=== PATIENT | male | born 1970 ===

== ENCOUNTER 2018-02-09 03:25 | Inpatient (IN) | payer OTHER ==
[2018-02-09 03:44] VITALS: BMI 25.7
[2018-02-09] MEDS ORDERED: Sodium Chloride 0.9% 1,000 ML IV STA (03:44)
--- NOTE | 2018-02-09 03:54 | ED PDOC ---
Arrival/HPI - General Chief Complaint: Abdominal Pain Time Seen by Provider: 02/09/18 03:32 Historian: Patient - History of Present Illness Narrative History of Present Illness (Text): 02/09/18 03:49 47 year old male, with no significant past medical history, presents to the emergency department complaining of abrupt onset of left-sided flank pain and abdominal pain that began ~ 2 hours prior to arrival. Patient denies any fever, chills, chest pain, shortness of breath, nausea, vomiting, diarrhea, other urinary symptoms, neck pain, headache, dizziness, or any other complaints. Time/Duration: Prior to Arrival (2 hours) Symptom Onset: Sudden Symptom Course: Unchanged Activities at Onset: Light Context: Home Past Medical History - Provider Review Nursing Documentation Reviewed: Yes Family/Social History - Physician Review Nursing Documentation Reviewed: Yes Family/Social History: No Known Family HX Allergies/Home Meds Allergies/Adverse Reactions: Allergies Unobtainable Allergy (Verified 02/09/18 05:17) Patient unaware of name of medication that gives him hives. patient states he was taking it for pain and inflammation. Home Medications: Home Meds Medication Instructions Recorded Confirmed No Known Home Med 02/09/18 02/09/18 Review of Systems - Physician Review All systems were reviewed & negative as marked: Yes - Review of Systems Constitutional: absent: Fevers, Other (chills) Respiratory: absent: SOB Cardiovascular: absent: Chest Pain Gastrointestinal: Abdominal Pain. absent: Diarrhea, Nausea, Vomiting Genitourinary Male: Other (urinary urgency). absent: Dysuria, Frequency, Hematuria Musculoskeletal: Back Pain (left-sided flank pain). absent: Neck Pain Neurological: absent: Headache, Dizziness Physical Exam Vital Signs Reviewed: Yes Vital Signs Temp Pulse Resp BP Pulse Ox 02/09/18 05:26 98.7 F 68 18 124/74 98 02/09/18 03:43 63 18 161/88 H 98 Temperature: Afebrile Blood Pressure: Hypertensive Pulse: Regular Respiratory Rate: Normal Appearance: Positive for: Well-Appearing, Non-Toxic, Comfortable Pain Distress: None Mental Status: Positive for: Alert and Oriented X 3 - Systems Exam Head: Present: Atraumatic, Normocephalic Pupils: Present: PERRL Extroacular Muscles: Present: EOMI Conjunctiva: Present: Normal Mouth: Present: Moist Mucous Membranes Neck: Present: Normal Range of Motion Respiratory/Chest: Present: Clear to Auscultation, Good Air Exchange. No: Respiratory Distress, Accessory Muscle Use Cardiovascular: Present: Regular Rate and Rhythm, Normal S1, S2. No: Murmurs Abdomen: Present: Tenderness (left lower abdomen), Normal Bowel Sounds. No: Distention (left upper/lower abdomen), Peritoneal Signs Back: Present: Normal Inspection Upper Extremity: Present: Normal Inspection. No: Cyanosis, Edema Lower Extremity: Present: Normal Inspection. No: Edema Neurological: Present: GCS=15, CN II-XII Intact, Speech Normal Skin: Present: Warm, Dry, Normal Color. No: Rashes Psychiatric: Present: Alert, Oriented x 3, Normal Insight, Normal Concentration Medical Decision Making ED Course and Treatment: 02/09/18 03:49 Impression: 47 year old male presents complaining of abrupt onset of left-sided flank pain and abdominal pain associated with urinary urgency that began 2 hours prior to arrival. Plan: -- EKG -- labs -- IV Fluids, Toradol, Zofran Inj, Morphine, -- Urinalysis -- CT Abd & pelvis IV Contrast -- Reassess and disposition Progress Notes: EKG shows NSR at 61 BPM with no acute changes. Interpreted by me. 02/09/18 04:35 Notified by nurse that patient became hypotensive following Morphine administration. Fluids given and Narcan was ordered. 02/09/18 06:00 Patient reexamined now with some tenderness on palpation to right lower abdomen as well as left sided abdomen.CT scan results suspicious for appendicitis. 02/09/18 06:18 Case discussed with surgical endoscopist Dr. Teresa who is aware and agrees to come down and evaluate patient. 02/09/18 06:45 Case was discussed with surgeon .He accepted to his service - Lab Interpretations Lab Results: 02/09/18 04:07 02/09/18 04:07 Lab Results 02/09/18 04:20: Urine Color Yellow, Urine Appearance Clear, Urine pH 6.0, Ur Specific Peak 1.025, Urine Protein Negative, Urine Glucose (UA) Negative, Urine Ketones Negative, Urine Blood Negative, Urine Nitrate Negative, Urine Bilirubin Negative, Urine Urobilinogen 0.2, Ur Leukocyte Esterase Negative 02/09/18 04:07: WBC 9.7, RBC 4.77, Hgb 14.6, Hct 40.8 L, MCV 85.5, MCH 30.6, MCHC 35.8, RDW 12.6, Plt Count 334, MPV 9.9 02/09/18 04:07: Sodium 140, Potassium 3.8, Chloride 106, Carbon Dioxide 25, Anion Gap 13, BUN 14, Creatinine 0.9, Est GFR ( Amer) > 60, Est GFR (Non- Af Amer) > 60, Random Glucose 113 H, Calcium 9.1, Total Bilirubin 0.5, AST 34, ALT 36, Alkaline Phosphatase 88, Total Protein 7.8, Albumin 4.1, Globulin 3.7, Albumin/Globulin Ratio 1.1, Lipase 145 I have reviewed the lab results: Yes - RAD Interpretation Narrative RAD Interpretations (Text): 02/09/18 06:15 CT Abd/Pelvis IMPRESSION: 1. Dilated, predominantly fluid-filled appendix. Although there is a small amount of intra-appendiceal air and there is no discernible periappendiceal free fluid or fat stranding, both the degree of dilatation and the amount of intra-appendiceal fluid are considered highly suspicious for acute appendicitis. Correlation with clinical assessment is recommended, as well as confirmation of the symptomatic abdominal quadrant. 2. Descending colon and sigmoid diverticulosis, without evidence of acute inflammatory changes to suggest acute diverticulitis. 3. Small fat-containing left inguinal hernia. 4. A 5 mm hyperattenuating focus is identified within the left aspect of the pelvis. Although within the vicinity of the left ureter, there is no evidence of left obstructive uropathy. This focus appears most consistent with a pelvic phlebolith Radiology Orders: 02/09/18 04:50 ABD & PELVIS IV CONTRAST ONLY [CT] Stat Hand Sample Maker: Radiologist - EKG Interpretation Interpreted by ED Physician: Yes Type: 12 lead EKG - Medication Orders Current Medication Orders: Discontinued Medications Sodium Chloride (Sodium Chloride 0.9%) 1,000 mls @ 999 mls/hr IV .Q1H1M STA Stop: 02/09/18 04:44 Last Admin: 02/09/18 04:14 Dose: 999 mls/hr eMAR Start Stop Document 02/09/18 04:14 SS (Rec: 02/09/18 04:14 SS [id number]) Intravenous Solution Start Date 02/09/18 Start Time 04:14 End Date 02/09/18 End time 05:15 Total Infusion Time 61 Morphine Sulfate (Morphine) 2 mg IVP STAT STA Stop: 02/09/18 04:01 Last Admin: 02/09/18 04:13 Dose: 2 mg MAR Pain Assessment Document 02/09/18 04:13 SS (Rec: 02/09/18 04:14 SS [id number]) Pain Reassessment Is this a pain reassessment? No Sleep Is patient sleeping during reassessment? No Presence of Pain Presence of Pain Yes Pain Scale Used Pain Scale Used Numeric Location Left, Right or Bilateral Left Upper or Lower Lower Pain Location Body Site Abdomen IVP Administration Document 02/09/18 04:13 SS (Rec: 02/09/18 04:14 SS [id number]) Charges for Administration # of IVP Administrations 1 Morphine Sulfate (Morphine) 2 mg IVP STAT STA Stop: 02/09/18 04:32 Last Admin: 02/09/18 04:29 Dose: 2 mg MAR Pain Assessment Document 02/09/18 04:29 SS (Rec: 02/09/18 04:39 SS [id number]) Pain Reassessment Is this a pain reassessment? No Presence of Pain Presence of Pain Yes IVP Administration Document 02/09/18 04:29 SS (Rec: 02/09/18 04:39 SS [id number]) Charges for Administration # of IVP Administrations 1 Naloxone HCl (Narcan) 0.4 mg IVP STAT STA Stop: 02/09/18 04:39 Last Admin: 02/09/18 04:47 Dose: 0.4 mg IVP Administration Document 02/09/18 04:47 SS (Rec: 02/09/18 04:47 SS [id number]) Charges for Administration # of IVP Administrations 1 Ondansetron HCl (Zofran Inj) 4 mg IVP ONCE ONE Stop: 02/09/18 04:01 Last Admin: 02/09/18 04:13 Dose: 4 mg IVP Administration Document 02/09/18 04:13 SS (Rec: 02/09/18 04:13 SS [id number]) Charges for Administration # of IVP Administrations 1 - Scribe Statement The provider has reviewed the documentation as recorded by the Trish Florez Provider Scribe Attestation: All medical record entries made by the Scribe were at my direction and personally dictated by me. I have reviewed the chart and agree that the record accurately reflects my personal performance of the history, physical exam, medical decision making, and the department course for this patient. I have also personally directed, reviewed, and agree with the discharge instructions and disposition. Disposition/Present on Arrival - Present on Arrival Any Indicators Present on Arrival: No History of DVT/PE: No History of Uncontrolled Diabetes: No Urinary Catheter: No History of Decub. Ulcer: No History Surgical Site Infection Following: None - Disposition Have Diagnosis and Disposition been Completed?: Yes Diagnosis: Abdominal pain, Appendicitis Disposition: HOSPITALIZED Disposition Time: 06:36 Patient Problems: Current Active Problems Problem Status Onset Abdominal pain Acute Appendicitis Acute Condition: STABLE
[2018-02-09] MEDS ORDERED: Morphine 2 mg/ml ISec IVP STA ×3 (04:00→08:50)
[2018-02-09 04:32] LABS: ALB/GLOB RATIO 1.1 (1.1-1.8); ALBUMIN 4.1 g/dL (3.0-4.8); ALT/SGPT 36 U/L (7-56); AST/SGOT 34 U/L (17-59); BLOOD UREA NITROGEN 14 mg/dL (7-21); CALCIUM 9.1 mg/dL (8.4-10.5); GFR NON-AFRICAN AMERICAN > 60; LIPASE 145 U/L (23-300)
[2018-02-09] MEDS ORDERED: Naloxone 0.4 mg/ml Inj (Adult) IVP STA (04:38)
[2018-02-09] MEDS ORDERED: Naloxone 0.4 mg/ml Inj (Adult) ONE (04:41)
[2018-02-09 04:50] LABS: HEMOGLOBIN 14.6 g/dL (14.0-18.0); MEAN CELL VOLUME 85.5 fl (80.0-105.0); MEAN CORPUSCULAR HEMOGLOBIN 30.6 pg (25.0-35.0); MEAN CORPUSCULAR HGB CONC 35.8 g/dl (31.0-37.0); MEAN PLATELET VOLUME 9.9 fl (7.0-11.0); RBC 4.77 10^6/uL (3.5-6.1); RED CELL DISTRIBUTION WIDTH 12.6 % (11.5-14.5); WHITE BLOOD COUNT 9.7 10^3/ul (4.5-11.0)
[2018-02-09 04:51] LABS: URINE BILIRUBIN NEGATIVE (NEGATIVE); URINE BLOOD NEGATIVE (NEGATIVE); URINE GLUCOSE (UA) NEGATIVE (NEGATIVE); URINE LEUKOCYTE ESTERASE NEGATIVE Leu/uL (NEGATIVE); URINE PROTEIN NEGATIVE mg/dL (<30 mg/dL); URINE UROBILINOGEN 0.2 E.U./dL (<1 E.U./dL)
[2018-02-09 04:52] LABS: URINE APPEARANCE CLEAR (CLEAR); URINE COLOR YELLOW (YELLOW)
[2018-02-09] MEDS ORDERED: Iohexol 350 MG/100 ML VIAL ONE (04:56)
--- NOTE | 2018-02-09 06:38 | CT ---
EXAM: CT Abdomen and Pelvis With Intravenous Contrast CLINICAL HISTORY: 47 years old, male; Pain; Abdominal pain; Localized; Left upper quadrant (luq) TECHNIQUE: Axial computed tomography images of the abdomen and pelvis with intravenous contrast. All CT scans at this facility use at least one of these dose optimization techniques: automated exposure control; mA and/or kV adjustment per patient size (includes targeted exams where dose is matched to clinical indication); or iterative reconstruction. Coronal and sagittal reformatted images were created and reviewed. CONTRAST: 100 mL of omnipaque 350 administered intravenously. COMPARISON: No relevant prior studies available. FINDINGS: Lung bases: Mild dependent changes are demonstrated within the bilateral lower lobes. ABDOMEN: Liver: Unremarkable. No mass. Gallbladder and bile ducts: Unremarkable. No calcified stones. No ductal dilation. Pancreas: Unremarkable. No mass. No ductal dilation. Spleen: Unremarkable. No splenomegaly. Adrenals: Unremarkable. No mass. Kidneys and ureters: A 5 mm hyperattenuating focus is identified within the left aspect of the pelvis. Although within the vicinity of the left ureter, there is no evidence of left obstructive uropathy Stomach and bowel: There is descending colon and sigmoid diverticulosis, without evidence of acute inflammatory changes. No obstruction. PELVIS: Appendix: The appendix is diffusely dilated and predominantly fluid-filled, measuring up to 13 mm in outer-wall to outer-wall diameter. The fluid-distended column The distal tip of the appendix remains air distended and thin-walled. There is no discernible her appendiceal free fluid or fat stranding. Small foci of mineralization demonstrated within the appendix could represent minute appendicoliths. Bladder: Unremarkable. No mass. Reproductive: Unremarkable as visualized. ABDOMEN and PELVIS: Intraperitoneal space: See above. Bones/joints: No acute fracture. No dislocation. Soft tissues: There is a small fat-containing left inguinal hernia. Vasculature: Unremarkable. No abdominal aortic aneurysm. Lymph nodes: No pathologically enlarged lymph nodes. IMPRESSION: 1. Dilated, predominantly fluid-filled appendix. Although there is a small amount of intra-appendiceal air and there is no discernible periappendiceal free fluid or fat stranding, both the degree of dilatation and the amount of intra-appendiceal fluid are considered highly suspicious for acute appendicitis. Correlation with clinical assessment is recommended, as well as confirmation of the symptomatic abdominal quadrant. 2. Descending colon and sigmoid diverticulosis, without evidence of acute inflammatory changes to suggest acute diverticulitis. 3. Small fat-containing left inguinal hernia. 4. A 5 mm hyperattenuating focus is identified within the left aspect of the pelvis. Although within the vicinity of the left ureter, there is no evidence of left obstructive uropathy. This focus appears most consistent with a pelvic phlebolith. THIS REPORT CONTAINS FINDINGS THAT MAY BE CRITICAL TO PATIENT CARE. The findings were verbally communicated via telephone conference with Amol Rodriguez at 6:06 AM EDT on 02/09/2018. The findings were acknowledged and understood.
[2018-02-09] MEDS ORDERED: HYDROmorphone 0.5 mg/0.5 ml ISec IVP PRN (09:30)
[2018-02-09] MEDS ORDERED: Sodium Chloride 0.9% 1,000 ML IV SCH (09:30)
--- NOTE | 2018-02-09 09:43 | CARD ---
APPROVED REPORT Date of service: 02/09/2018 EKG Measurement Heart [id number] <Conclusion> Normal sinus rhythm Normal ECG
[2018-02-09] MEDS: Piperacillin/Tazobact 3.375 gm 100 ML IVPB SCH ×2 (12:09→17:38)
[2018-02-09] MEDS ORDERED: HYDROmorphone 0.5 mg/0.5 ml ISec IVP STA (12:26)
[2018-02-09] MEDS ORDERED: HYDROmorphone 1 mg/ml ISec IVP PRN (12:45)
--- NOTE | 2018-02-09 13:23 | CP.PCM.CON ---
History of Present Illness - History of Present Illness History of Present Illness: General Surgery Consult note For Dr. Carpio This 47M with no PMH presents with acute onset abdominal pain that began at 3am. It is diffuse across the lower abdomen worse on the left. No associated with nausea vomiting or bowel changes. Pt denies fevers or chills at home. This has never happened before. Patient denies any sick contacts or other associated symptoms. CT in the ED was significant for a large appendix without fat str anding or signs of inflammation. There is diverticulitis without signs of diverticulitis, no free air see. PMH: Denies PSH: Denies ALL: Cyclobenzoprine, Ibeuprofen Social: Denies vices Review of Systems - Review of Systems All systems: reviewed and no additional remarkable complaints except - Constitutional Constitutional: Anorexia. absent: Chills, Fever - Cardiovascular Cardiovascular: absent: Chest Pain, Dyspnea - Respiratory Respiratory: absent: Dyspnea, Dyspnea on Exertion - Gastrointestinal Gastrointestinal: Abdominal Pain, Bloating. absent: Constipation, Cramping, Dysphagia, Heartburn, Nausea, Vomiting - Genitourinary Genitourinary: absent: Difficulty Urinating, Dysuria - Integumentary Integumentary: absent: Change in Hair, Dry Skin Past Patient History - Infectious Disease Hx of Infectious Diseases: None - Past Social History Smoking Status: Never Smoked - CARDIAC Hx Cardiac Disorders: No - PULMONARY Hx Respiratory Disorders: No - NEUROLOGICAL Hx Neurological Disorder: No - HEENT Hx HEENT Problems: No - RENAL Hx Chronic Kidney Disease: No - ENDOCRINE/METABOLIC Hx Endocrine Disorders: No - HEMATOLOGICAL/ONCOLOGICAL Hx Blood Disorders: No - INTEGUMENTARY Hx Dermatological Problems: No - MUSCULOSKELETAL/RHEUMATOLOGICAL Hx Back Pain: Yes Hx Falls: Yes (FALL AT WORK 2016) - GASTROINTESTINAL Hx Gastrointestinal Disorders: No - GENITOURINARY/GYNECOLOGICAL Hx Genitourinary Disorders: No - PSYCHIATRIC Hx Psychophysiologic Disorder: No - SURGICAL HISTORY Hx Surgeries: No - ANESTHESIA Hx Anesthesia: No Meds Allergies/Adverse Reactions: Allergies Allergy/AdvReac Type Severity Reaction Status Date / Time cyclobenzaprine Allergy RASH Verified 02/09/18 11:11 ibuprofen Allergy RASH Verified 02/09/18 09:14 - Medications Medications: Current Medications Hydromorphone HCl (Dilaudid) 1 mg IVP Q6H PRN PRN Reason: Pain, moderate (4-7) Sodium Chloride (Sodium Chloride 0.9%) 1,000 mls @ 150 mls/hr IV .Q6H40M TARA Last Admin: 02/09/18 12:08 Dose: 150 mls/hr Piperacillin Sod/Tazobactam Sod (Zosyn 3.375 In Ns 100ml) 100 mls @ 200 mls/hr IVPB Q6 TARA PRN Reason: Protocol Stop: 02/09/18 18:29 Last Admin: 02/09/18 12:09 Dose: 200 mls/hr Acetaminophen (Ofirmev) 1,000 mg in 100 mls @ 400 mls/hr IVPB Q6H PRN PRN Reason: Pain, moderate (4-7) Stop: 02/11/18 09:20 Physical Exam - Constitutional Appears: Non-toxic, No Acute Distress - Head Exam Head Exam: ATRAUMATIC, NORMOCEPHALIC - Eye Exam Eye Exam: EOMI, Normal appearance - ENT Exam ENT Exam: Mucous Membranes Moist - Respiratory Exam Respiratory Exam: NORMAL BREATHING PATTERN - Cardiovascular Exam Cardiovascular Exam: +S1, +S2 - GI/Abdominal Exam GI & Abdominal Exam: Soft, Tenderness. absent: Distended, Firm, Guarding, Hernia, Rigid Additional comments: Diffuse tenderness out of proportion to exam - Neurological Exam Neurological exam: Alert, Oriented x3 - Psychiatric Exam Psychiatric exam: Normal Affect, Normal Mood - Skin Skin Exam: Dry, Intact Results - Vital Signs Recent Vital Signs: Last Vital Signs Temp 97.8 F 02/09/18 11:00 Pulse 69 02/09/18 11:00 Resp 20 02/09/18 11:00 BP 124/80 02/09/18 11:00 Pulse Ox 97 02/09/18 11:00 - Labs Result Diagrams: 02/09/18 04:07 02/09/18 04:07 Assessment & Plan - Assessment and Plan (Free Text) Assessment: 47M with diffuse abdominal pain NPO Serial Abdominal Exam Abg Possible OR if pain persists Further recs per Dr. Shirin Neal PGY3
[2018-02-09 14:20] LABS: ARTERIAL BLOOD GAS HCO3 23.1 mmol/L (21-28); ARTERIAL BLOOD GAS O2 SAT 98.9 % (95-98); ARTERIAL BLOOD GAS PCO2 39 mm/Hg (35-45); ARTERIAL BLOOD GAS PH 7.38 (7.35-7.45); ARTERIAL BLOOD GAS TCO2 24.3 mmol.L (22-28)
[2018-02-09] MEDS: HYDROmorphone 1 mg/ml ISec IVP PRN ×2 (15:51→21:41)
[2018-02-09] MEDS ORDERED: Menthol/Phenol (Cepastat) Lozenge MT PRN ×2 (17:52→18:46)
[2018-02-09] MEDS ORDERED: Lactated Ringer's 1,000 ML IV SCH (20:00)
[2018-02-09] MEDS: Lactated Ringer's 1,000 ML IV SCH (21:54)
[2018-02-10] MEDS ORDERED: Piperacillin/Tazobact 3.375 gm 100 ML IVPB SCH
[2018-02-10 07:11] LABS: BASO # 0.02 K/mm3 (0.0-2.0); BASO % 0.3 % (0.0-3.0); EOS # 0.2 (0.0-0.7); EOS % 2.9 % (1.5-5.0); GRAN # 3.67 (1.4-6.5); HEMOGLOBIN 11.9 g/dL (14.0-18.0); LYMPH # 2.8 (1.2-3.4); LYMPH % 38.1 % (22.0-35.0); MEAN CELL VOLUME 86.9 fl (80.0-105.0); MEAN CORPUSCULAR HEMOGLOBIN 29.4 pg (25.0-35.0); MEAN CORPUSCULAR HGB CONC 33.8 g/dl (31.0-37.0); MEAN PLATELET VOLUME 9.9 fl (7.0-11.0); MONO # 0.6 (0.1-0.6); MONO % 8.7 % (1.0-6.0); RBC 4.05 10^6/uL (3.5-6.1); RED CELL DISTRIBUTION WIDTH 12.9 % (11.5-14.5); WHITE BLOOD COUNT 7.3 10^3/ul (4.5-11.0)
[2018-02-10 07:33] LABS: ALBUMIN 3.2 g/dL (3.0-4.8); ALT/SGPT 24 U/L (7-56); AST/SGOT 25 U/L (17-59); BLOOD UREA NITROGEN 9 mg/dL (7-21); CALCIUM 8.6 mg/dL (8.4-10.5); GFR NON-AFRICAN AMERICAN > 60
--- NOTE | 2018-02-10 08:56 | RAD ---
Date of service: 02/09/2018 HISTORY: pre-op eval COMPARISON: No prior. FINDINGS: LUNGS: No active pulmonary disease. PLEURA: No significant pleural effusion identified, no pneumothorax apparent. CARDIOVASCULAR: Normal. OSSEOUS STRUCTURES: No significant abnormalities. VISUALIZED UPPER ABDOMEN: Normal. OTHER FINDINGS: None. IMPRESSION: No active disease.
--- NOTE | 2018-02-10 12:06 | CP.PCM.HP ---
History of Present Illness - History of Present Illness History of Present Illness: History of Present Illness: General Surgery Consult note For Dr. Carpio This 47M with no PMH presents with acute onset abdominal pain that began at 3am. It is diffuse across the lower abdomen worse on the left. No associated with n ausea vomiting or bowel changes. Pt denies fevers or chills at home. This has never happened before. Patient denies any sick contacts or other associated symptoms. CT in the ED was significant for a large appendix without fat stranding or signs of inflammation. There is diverticulitis without signs of diverticulitis, no free air see. PMH: Denies PSH: Denies ALL: Cyclobenzoprine, Ibeuprofen Social: Denies vices Review of Systems - Review of Systems All systems: reviewed and no additional remarkable complaints except - Constitutional Constitutional: Anorexia. absent: Chills, Fever - Cardiovascular Cardiovascular: absent: Chest Pain, Dyspnea - Respiratory Respiratory: absent: Dyspnea, Dyspnea on Exertion - Gastrointestinal Gastrointestinal: Abdominal Pain, Bloating. absent: Constipation, Cramping, Dysphagia, Heartburn, Nausea, Vomiting - Genitourinary Genitourinary: absent: Difficulty Urinating, Dysuria - Integumentary Integumentary: absent: Change in Hair, Dry Skin Past Patient History - Infectious Disease Hx of Infectious Diseases: None - Past Social History Smoking Status: Never Smoked - CARDIAC Hx Cardiac Disorders: No - PULMONARY Hx Respiratory Disorders: No - NEUROLOGICAL Hx Neurological Disorder: No - HEENT Hx HEENT Problems: No - RENAL Hx Chronic Kidney Disease: No - ENDOCRINE/METABOLIC Hx Endocrine Disorders: No - HEMATOLOGICAL/ONCOLOGICAL Hx Blood Disorders: No - INTEGUMENTARY Hx Dermatological Problems: No - MUSCULOSKELETAL/RHEUMATOLOGICAL Hx Back Pain: Yes Hx Falls: Yes (FALL AT WORK 2016) - GASTROINTESTINAL Hx Gastrointestinal Disorders: No - GENITOURINARY/GYNECOLOGICAL Hx Genitourinary Disorders: No - PSYCHIATRIC Hx Psychophysiologic Disorder: No - SURGICAL HISTORY Hx Surgeries: No - ANESTHESIA Hx Anesthesia: No Present on Admission - Present on Admission Any Indicators Present on Admission: No Past Patient History - Infectious Disease Hx of Infectious Diseases: None - Past Social History Smoking Status: Never Smoked - CARDIAC Hx Cardiac Disorders: No - PULMONARY Hx Respiratory Disorders: No - NEUROLOGICAL Hx Neurological Disorder: No - HEENT Hx HEENT Problems: No - RENAL Hx Chronic Kidney Disease: No - ENDOCRINE/METABOLIC Hx Endocrine Disorders: No - HEMATOLOGICAL/ONCOLOGICAL Hx Blood Disorders: No - INTEGUMENTARY Hx Dermatological Problems: No - MUSCULOSKELETAL/RHEUMATOLOGICAL Hx Back Pain: Yes Hx Falls: Yes (FALL AT WORK 2016) - GASTROINTESTINAL Hx Gastrointestinal Disorders: No - GENITOURINARY/GYNECOLOGICAL Hx Genitourinary Disorders: No - PSYCHIATRIC Hx Psychophysiologic Disorder: No - SURGICAL HISTORY Hx Surgeries: No - ANESTHESIA Hx Anesthesia: No Meds Allergies/Adverse Reactions: Allergies Allergy/AdvReac Type Severity Reaction Status Date / Time cyclobenzaprine Allergy RASH Verified 02/09/18 11:11 ibuprofen Allergy RASH Verified 02/09/18 09:14 Physical Exam - Constitutional Additional comments: - Constitutional Appears: Non-toxic, No Acute Distress - Head Exam Head Exam: ATRAUMATIC, NORMOCEPHALIC - Eye Exam Eye Exam: EOMI, Normal appearance - ENT Exam ENT Exam: Mucous Membranes Moist - Respiratory Exam Respiratory Exam: NORMAL BREATHING PATTERN - Cardiovascular Exam Cardiovascular Exam: +S1, +S2 - GI/Abdominal Exam GI & Abdominal Exam: Soft, Tenderness. absent: Distended, Firm, Guarding, Hernia, Rigid Additional comments: Diffuse tenderness out of proportion to exam - Neurological Exam Neurological exam: Alert, Oriented x3 - Psychiatric Exam Psychiatric exam: Normal Affect, Normal Mood - Skin Skin Exam: Dry, Intact Results - Vital Signs Recent Vital Signs: Last Vital Signs Temp 98 F 02/10/18 09:16 Pulse 52 L 02/10/18 09:16 Resp 20 02/10/18 09:16 BP 115/65 02/10/18 09:16 Pulse Ox 97 02/10/18 09:16 - Labs Result Diagrams: 02/10/18 06:30 02/10/18 06:30 Labs: Laboratory Results - last 24 hr 02/09/18 02/10/18 02/10/18 14:17 06:30 06:30 WBC 7.3 D RBC 4.05 Hgb 11.9 L D Hct 35.2 L MCV 86.9 MCH 29.4 MCHC 33.8 RDW 12.9 Plt Count 275 MPV 9.9 Gran % 50.0 Lymph % (Auto) 38.1 H [place] % (Auto) 8.7 H Eos % (Auto) 2.9 Baso % (Auto) 0.3 Gran # 3.67 Lymph # (Auto) 2.8 [place] # (Auto) 0.6 Eos # (Auto) 0.2 Baso # (Auto) 0.02 pCO2 39 pO2 80.0 HCO3 23.1 ABG pH 7.38 ABG Total CO2 24.3 ABG O2 Saturation 98.9 H ABG Base Excess -1.8 ABG Potassium 3.2 L Sodium 140.0 138 Chloride 112.0 H 107 Glucose 105 Lactate 1.3 FiO2 21.0 Potassium 3.7 Carbon Dioxide 26 Anion Gap 9 L BUN 9 Creatinine 0.8 Est GFR ( Amer) > 60 Est GFR (Non-Af Amer) > 60 Random Glucose 98 Calcium 8.6 Phosphorus 3.7 Magnesium 2.0 Total Bilirubin 1.0 AST 25 ALT 24 Alkaline Phosphatase 60 Total Protein 6.3 Albumin 3.2 Globulin 3.1 Albumin/Globulin Ratio 1.0 L Arterial Blood Potassium 3.2 L Assessment & Plan - Assessment and Plan (Free Text) Assessment: - Assessment and Plan (Free Text) Assessment: 47M with diffuse abdominal pain NPO Serial Abdominal Exam Abg Possible OR if pain persists Further recs per Dr. Shirin Neal PGY3
[2018-02-10] MEDS: metroNIDAZOLE IV 500 mg/100 ml 500 MG/100 ML BAG IVPB SCH ×2 (17:32→21:18)
[2018-02-10] MEDS: Lactated Ringer's 1,000 ML IV SCH (21:19)
[2018-02-11] MEDS: Lactated Ringer's 1,000 ML IV SCH (04:24)
[2018-02-11] MEDS: metroNIDAZOLE IV 500 mg/100 ml 500 MG/100 ML BAG IVPB SCH ×3 (05:17→21:41)
[2018-02-11] MEDS ORDERED: Bupivacaine 0.5% Inj(30mL) ONE (07:31)
[2018-02-11] MEDS ORDERED: Propofol 10 mg/ml Inj (20 ML) ONE (08:19)
[2018-02-11] MEDS ORDERED: Succinylcholine 200 mg/10 ml Inj IV ONE (08:20)
[2018-02-11] MEDS ORDERED: Rocuronium 10 mg/ml (5 ml) ONE (08:20)
[2018-02-11] MEDS ORDERED: Sevoflurane - Inhalation Anesthetic Liq (250 ml) ONE (08:21)
[2018-02-11] MEDS ORDERED: Neostigmine Methylsulfate 3mg/3ml Syringe IV ONE (09:12)
--- NOTE | 2018-02-11 09:52 | PCM.SURG1 ---
Surgeon's Initial Post Op Note - Surgeon's Notes Surgeon: Dr. Carpio Dry Placer Machine Operator: Dr. Teresa PGY3 Type of Anesthesia: General Endo Pre-Operative Diagnosis: RLQ abd pain; acute appendicitis Operative Findings: see dictation Post-Operative Diagnosis: same Operation Performed: diagnostic laparoscopy, laparoscopic appendectomy Specimen/Specimens Removed: appendix Estimated Blood Loss: EBL {In ML}: 5 Blood Products Given: N/A Drains Used: No Drains Post-Op Condition: Good Date of Surgery/Procedure: 02/11/18 Time of Surgery/Procedure: 09:52
[2018-02-11] MEDS ORDERED: HYDROmorphone 0.5 mg/0.5 ml ISec IVP PRN ×2 (09:53→09:59)
[2018-02-11] MEDS ORDERED: Lactated Ringer's 1,000 ML IV SCH (10:00)
[2018-02-11] MEDS ORDERED: HYDROmorphone 1 mg/ml ISec IVP ONE (13:34)
[2018-02-11] MEDS ORDERED: HYDROmorphone 1 mg/ml ISec IVP STA (13:45)
[2018-02-11 17:02] VITALS: TEMP 98; O2SAT 97
[2018-02-11] MEDS: HYDROmorphone 1 mg/ml ISec IVP PRN (18:52)
[2018-02-12] MEDS: metroNIDAZOLE IV 500 mg/100 ml 500 MG/100 ML BAG IVPB SCH (05:27)
[2018-02-12] MEDS: HYDROmorphone 1 mg/ml ISec IVP PRN (08:02)
--- NOTE | 2018-02-12 08:25 | CP.PCM.DIS ---
Provider - Provider Date of Admission: 02/09/18 06:33 Attending physician: Trino Carpio MD Time Spent in preparation of Discharge (in minutes): 20 Hospital Course - Lab Results Lab Results: Most Recent Lab Values WBC 7.3 10^3/ul (4.5-11.0) D 02/10/18 06:30 RBC 4.05 10^6/uL (3.5-6.1) 02/10/18 06:30 Hgb 11.9 g/dL (14.0-18.0) L D 02/10/18 06:30 Hct 35.2 % (42.0-52.0) L 02/10/18 06:30 MCV 86.9 fl (80.0-105.0) 02/10/18 06:30 MCH 29.4 pg (25.0-35.0) 02/10/18 06:30 MCHC 33.8 g/dl (31.0-37.0) 02/10/18 06:30 RDW 12.9 % (11.5-14.5) 02/10/18 06:30 Plt Count 275 10^3/uL (120.0-450.0) 02/10/18 06:30 MPV 9.9 fl (7.0-11.0) 02/10/18 06:30 Gran % 50.0 % (50.0-68.0) 02/10/18 06:30 Lymph % (Auto) 38.1 % (22.0-35.0) H 02/10/18 06:30 Mellette % (Auto) 8.7 % (1.0-6.0) H 02/10/18 06:30 Eos % (Auto) 2.9 % (1.5-5.0) 02/10/18 06:30 Baso % (Auto) 0.3 % (0.0-3.0) 02/10/18 06:30 Gran # 3.67 (1.4-6.5) 02/10/18 06:30 Lymph # (Auto) 2.8 (1.2-3.4) 02/10/18 06:30 Mel[place] # (Auto) 0.6 (0.1-0.6) 02/10/18 06:30 Eos # (Auto) 0.2 (0.0-0.7) 02/10/18 06:30 Baso # (Auto) 0.02 K/mm3 (0.0-2.0) 02/10/18 06:30 pCO2 39 mm/Hg (35-45) 02/09/18 14:17 pO2 80.0 mm/Hg (80-100) 02/09/18 14:17 HCO3 23.1 mmol/L (21-28) 02/09/18 14:17 ABG pH 7.38 (7.35-7.45) 02/09/18 14:17 ABG Total CO2 24.3 mmol.L (22-28) 02/09/18 14:17 ABG O2 Saturation 98.9 % (95-98) H 02/09/18 14:17 ABG Base Excess -1.8 mmol/L (-2.0-3.0) 02/09/18 14:17 ABG Potassium 3.2 mmol/L (3.6-5.2) L 02/09/18 14:17 Sodium 140.0 mmol/L (132-148) 02/09/18 14:17 Chloride 112.0 mmol/L (98-107) H 02/09/18 14:17 Glucose 105 mg/dl (75-110) 02/09/18 14:17 Lactate 1.3 mmol/L (0.7-2.1) 02/09/18 14:17 FiO2 21.0 % 02/09/18 14:17 Sodium 138 mmol/L (132-148) 02/10/18 06:30 Potassium 3.7 mmol/L (3.6-5.0) 02/10/18 06:30 Chloride 107 mmol/L (98-107) 02/10/18 06:30 Carbon Dioxide 26 mmol/L (21-33) 02/10/18 06:30 Anion Gap 9 (10-20) L 02/10/18 06:30 BUN 9 mg/dL (7-21) 02/10/18 06:30 Creatinine 0.8 mg/dl (0.8-1.5) 02/10/18 06:30 Est GFR ( Amer) > 60 02/10/18 06:30 Est GFR (Non-Af Amer) > 60 02/10/18 06:30 POC Glucose (mg/dL) 118 mg/dL (65-110) H 02/10/18 16:06 Random Glucose 98 mg/dL (70-110) 02/10/18 06:30 Calcium 8.6 mg/dL (8.4-10.5) 02/10/18 06:30 Phosphorus 3.7 mg/dL (2.5-4.5) 02/10/18 06:30 Magnesium 2.0 mg/dL (1.7-2.2) 02/10/18 06:30 Total Bilirubin 1.0 mg/dL (0.2-1.3) 02/10/18 06:30 AST 25 U/L (17-59) 02/10/18 06:30 ALT 24 U/L (7-56) 02/10/18 06:30 Alkaline Phosphatase 60 U/L (38-126) 02/10/18 06:30 Total Protein 6.3 g/dL (5.8-8.3) 02/10/18 06:30 Albumin 3.2 g/dL (3.0-4.8) 02/10/18 06:30 Globulin 3.1 gm/dL 02/10/18 06:30 Albumin/Globulin Ratio 1.0 (1.1-1.8) L 02/10/18 06:30 Lipase 145 U/L (23-300) 02/09/18 04:07 Arterial Blood Potassium 3.2 mmol/L (3.6-5.2) L 02/09/18 14:17 Urine Color Yellow (YELLOW) 02/09/18 04:20 Urine Appearance Clear (CLEAR) 02/09/18 04:20 Urine pH 6.0 (4.7-8.0) 02/09/18 04:20 Ur Specific [place] 1.025 (1.005-1.035) 02/09/18 04:20 Urine Protein Negative mg/dL (<30 mg/dL) 02/09/18 04:20 Urine Glucose (UA) Negative mg/dL (NEGATIVE) 02/09/18 04:20 Urine Ketones Negative mg/dL (NEGATIVE) 02/09/18 04:20 Urine Blood Negative (NEGATIVE) 02/09/18 04:20 Urine Nitrate Negative (NEGATIVE) 02/09/18 04:20 Urine Bilirubin Negative (NEGATIVE) 09/24/18 04:20 Urine Urobilinogen 0.2 E.U./dL (<1 E.U./dL) 02/09/18 04:20 Ur Leukocyte Esterase Negative Carlyn/uL (NEGATIVE) 02/09/18 04:20 - Hospital Course Hospital Course: 47 y/o M w/ no PMHx presented to the ED w/ acute onset abdominal pain that began at 3am on 02/09. Pt was localized to lower abdomen and was not associated w/ nausea, vomiting, or bowel changes. Pt denied fevers or chills at home. CT in the ED was significant for a large appendix without fat stranding or signs of inflammation. Pt was admitted for observation w/ concern for acute appendicitis. Pt's pain continued throughout hospital course despite IV Abx. Decision was made to take pt for diagnostic laparoscopy and appendectomy. Pt tolerated the procedure well w/ no complications. Pt S&E @bedside. No acute events overnight. Pain well controlled w/ PO meds. Pt denies F/C, N/V. urinating freely. tolerating regular diet. Pt is cleared for discharge to home w/ instructions to f/u w/ Dr. Carpio and PMD in office. For full hospital course see EMR. Discharge Exam - Head Exam Head Exam: ATRAUMATIC, NORMOCEPHALIC - Eye Exam Eye Exam: Normal appearance - ENT Exam ENT Exam: Mucous Membranes Moist - Respiratory Exam Respiratory Exam: NORMAL BREATHING PATTERN - Cardiovascular Exam Cardiovascular Exam: REGULAR RHYTHM. absent: Bradycardia, Tachycardia - GI/Abdominal Exam GI & Abdominal Exam: Soft, Tenderness (mild alba-incisional TTP ). absent: Distended, Firm, Guarding, Hernia, Rebound Additional comments: incisions c/d/i - Extremities Exam Extremities exam: normal inspection - Neurological Exam Neurological exam: Alert, Oriented x3 - Psychiatric Exam Psychiatric exam: Normal Affect, Normal Mood - Skin Skin Exam: Dry, Intact, Normal Color, Warm Discharge Plan - Follow Up Plan Condition: GOOD Disposition: HOME/ ROUTINE Patient education suggested?: Yes Instructions: How to Prevent Surgical Site Infections, Surgical Wound (DC), Appendectomy, Laparoscopic Surgery (DC) Additional Instructions: Follow up with PMD in 7-10 days Follow up w/ Dr. Carpio in 7-10 days take all medication as prescribed Pt may take OTC pain medications PRN No dietary restrictions No heavy lifting (nothing more than 10lbs) for 4-6weeks to prevent hernia formation Pt may shower however do not soak incisions no pools, tubs, baths return to the ED if fever >101, pain, redness, swelling, drainage from incisions Referrals: Trino Carpio MD [Staff Provider] - [facility] [Outside]
[2018-02-12 09:09] VITALS: BP 133/80; PULSE 52; RESP 18
--- NOTE | 2018-02-17 08:08 | OP ---
PROCEDURE DATE: 02/11/2018 PREOPERATIVE DIAGNOSIS: Acute appendicitis. POSTOPERATIVE DIAGNOSIS: Acute appendicitis. SURGERY: Laparoscopic appendectomy. SURGEON: Trino Carpio MD, PhD ANESTHESIA: General endotracheal. DESCRIPTION OF PROCEDURE: The patient was brought to the operating room, placed on the operating table in the supine position. After smooth induction of general endotracheal anesthesia, Venodyne boots were placed on both legs and prophylactic antibiotics were given. The entire abdomen was prepped and draped in the usual sterile fashion. A 15 blade was used to perform the vertical infraumbilical midline incision, which was then brought down to subcutaneous tissue using Bovie electrocautery. was inserted in the peritoneal cavity . A 0 Vicryl stitch was placed on each side with end-to-side fashion and a Pradeep trocar was inserted under direct visualization and the obturator was removed and the port was connected to the generating pneumoperitoneum up to 15 mmHg. A 10 mm of 30-degree laparoscopic video camera was inserted and the abdomen was inspected. The appendix appeared to be slightly inflamed and with small amount of fluid in the right paracolic gutter and right pelvic area. Two 5 mm ports were inserted in to the left elevation in the lower abdomen through which the Endo grasper and the Harmonic scalpel were inserted, then advanced to the area of the appendix. The appendix was grasped with Endo grasper and retracted upwards exposing the mesoappendix, which was secured in a sequential fashion using the Harmonic scalpel all the way to the base of the appendix. The laparoscopic video camera was switched to , which was placed to the left lower quadrant port and the blue Endo FELI 45 stapler was inserted through the infraumbilical port and fired across the base of the appendix. The specimen was placed in an Endo Bag and removed from the operating field and covered with appropriate label for permanent sections. The abdomen was irrigated with warm normal saline and there was no evidence of bleeding or succus discharge from the appendiceal staple line. The infraumbilical port was removed and the fascia was closed using interrupted 0 Vicryl stitches. The integrity of the fascial closure was checked by inserting a 5 mm 30-degree laparoscopic video camera through the left lower quadrant port. It was also confirmed there was no evidence bleeding or bowel or omental obstruction. The remaining two 5-mm ports were removed under direct laparoscopic visualization and there was bleeding from the port sites. Those skin incisions were closed with 4-0 continuous subcuticular Monocryl stitch and Steri-Strips were applied. At the end of the surgery, the count of the instruments as well as the needles were correct x2. The patient tolerated the surgery well and was transferred in stable condition to the recovery room. Trino Carpio MD
== END 2018-02-12 11:48 | disposition home or self-care (01) | DRG 883 ==
LOC: ED 03:25 → ERH 06:33 → OBSVTOIN 06:33 → INTOOBSV 06:33 → ERH 06:59 → 3RSO 09:35 → OBSVTOIN 02-10 15:03
PROVIDERS: ADMIT Specialist; ATTEND Specialist
PROC: 0DTJ4ZZ Resection of Appendix, Percutaneous Endoscopic Approach (ICD-10-PCS; principal; 2018-02-10)
DX: K35.80 Unspecified acute appendicitis (principal); I87.8 Other specified disorders of veins; K40.90 Unilateral inguinal hernia, without obstruction or gangrene, not specified as recurrent; K57.32 Diverticulitis of large intestine without perforation or abscess without bleeding